=== PATIENT | female | born 1990 | race Caucasian/White ===

== ENCOUNTER 2022-08-01 16:17 | Inpatient (IN) | payer OTHER, SELFPAY ==
[2022-08-01] VITALS (12 sets, daily range): BP systolic 101–142; BP diastolic 64–110; PULSE 68–93; TEMP 36.2–36.4; BMI 35.6
[2022-08-01 17:47] LABS: Basophils Percent Auto 0.3 % (0.2-1.2); Eosinophils Absolute Auto 0.1 K/mm3 (0-0.3); Eosinophils Percent Auto 0.5 % (0-4.4); Hematocrit 32.7 % (37.0-47.0); Hemoglobin 10.5 g/dL (12.0-15.0); Immature Granulocyte Absolute 0.03 K/mm3 (0.00-0.031); Immature Granulocyte Percent A 0.3 % (0-0.5); Lymphocytes Absolute Auto 1.85 K/mm3 (0.9-3.2); Lymphocytes Percent Auto 18.4 % (18.3-44.2); Mean Corpuscular HGB Conc 32.1 g/dl (32-36); Mean Corpuscular Hemoglobin 28.5 pg (26-34); Mean Corpuscular Volume 88.6 fl (80-100); Mean Platelet Volume 10.3 fl (7.4-10.4); Monocytes Absolute Auto 0.7 K/mm3 (0.1-0.6); Monocytes Percent Auto 6.7 % (2.6-8.5); Neutrophils Absolute Auto 7.4 K/mm3 (1.3-6.7); Neutrophils Percent Auto 73.8 % (45.5-73.1); Platelet Count Result 363 k/mm3 (150-375); Red Blood Count 3.69 M/mm3 (4.2-5.4); Red Cell Distribution Width 13.5 % (11.5-14.5)
--- NOTE | 2022-08-01 17:47 | LDADM ---
This patient, Lizzie Recinos, was admitted to Labor/Delivery/Recovery 105 on 08/01/22 at 16:17. Plans for labor, pain management and were discussed with patient. Patient/family oriented to hospital policies and general routines including ID bracelet, bed and alarms, visiting hours, pain management, procedures, bathroom and other care routines, personal items, smoking policy, room service/diet and guest tray routines, security routines, and visiting hours. Patient/Family are encouraged to report perceived risks to care and to ask questions if they do not understand what they are told or what they should do. See OBIX for further documentation.
[2022-08-01] MEDS: miSOPROStol 25 MCG TABLET VAGINAL (18:03)
--- NOTE | 2022-08-01 18:54 | P.HP_ITS ---
H&P: HPI History of Present Illness Date/Time: 08/01/22 18:54 Chief Complaint: induction of labor Narrative: Lizzie is a 32yo G1 at 39.2 for elective IOL. GBS pos. uncomplicated. Review of Systems Review of Systems: All systems reviewed & are unremarkable except as noted in HPI and below [facility] Family History Family History (Updated 07/08/22 @ 12:40 by Raymundo Almanzar RN) Father Chronic obstructive pulmonary disease High cholesterol Hypothyroidism Emphysema lung Grandparent Diabetes mellitus Dementia Hypertension High cholesterol Heart disease Social History Social History Smoking status: Former smoker Tobacco type: cigarettes Substance use: never Spiritual care concerns: No Meds Home Medications and Allergies Home Medications Medication Instructions Recorded Confirmed Type pantoprazole 40 mg tablet,delayed 40 mg PO QAM 07/08/22 08/01/22 History release prenat.vits,patrick,[id number] 1 tablet PO DAILY 07/08/22 08/01/22 History Allergies Allergy/AdvReac Type Severity Reaction Status Date / Time No Known Allergies Allergy Verified 08/01/22 17:43 Vital Signs Vital Signs - 24 hr 08/01/22 17:46 08/01/22 18:11 08/01/22 18:30 Pulse Rate 77 77 Blood Pressure 123/82 119/76 Oxygen Delivery Room Air 08/01/22 18:03 Pulse Rate Blood Pressure Oxygen Delivery Room Air Exam Const: General: no acute distress Resp: Effort & Inspection: normal respiratory effort Auscultation: clear to auscultation bilaterally Cardio: Rate: regular rate Rhythm: regular rhythm GI: GI Palp: Yes Soft to palpation Extrem: General: normal to inspection H&P: Results Labs Labs: Short CBC 08/01/22 Range/Units 17:38 WBC 10.0 (4.5-10.0) K/mm3 Hgb 10.5 L (12.0-15.0) g/dL Hct 32.7 L (37.0-47.0) % Plt Count 363 (150-375) k/mm3 Assessment and Plan Assessment and plan (1) Term : Code(s): Z34.90 - Encounter for supervision of normal , unspecified, unspecified trimester Status: Acute Plan FHT category 1 GBS pos cytotec x1 then pitocin
--- NOTE | 2022-08-01 20:57 | WPDANESEPP ---
Anes - Eval Pre Procedure Procedure: labor epidural Date/Time: 08/01/22 20:57 Pre Op Diagnosis: iol Patient Data Age: 32 Gender: F Height: 1.68 m Weight: 100 kg Last Vital Signs Temp 36.2 C L 08/01/22 20:00 Pulse 79 08/01/22 20:32 BP 142/72 H 08/01/22 20:32 O2 Del Method Room Air 08/01/22 18:03 Allergies Allergy/AdvReac Type Severity Reaction Status Date / Time No Known Allergies Allergy Verified 08/01/22 17:43 Home Medications Medication Instructions Recorded Confirmed Type pantoprazole 40 mg tablet,delayed 40 mg PO QAM 07/08/22 08/01/22 History release prenat.vits,patrick,[id number] 1 tablet PO DAILY 07/08/22 08/01/22 History Laboratory Tests 08/01/22 08/01/22 08/01/22 17:38 17:38 17:38 WBC 10.0 K/mm3 K/mm3 (4.5-10.0) RBC 3.69 M/mm3 L M/mm3 (4.2-5.4) Hgb 10.5 g/dL L g/dL (12.0-15.0) Hct 32.7 % L % (37.0-47.0) MCV 88.6 fl fl (80-100) MCH 28.5 pg pg (26-34) MCHC 32.1 g/dl g/dl (32-36) RDW 13.5 % % (11.5-14.5) Plt Count 363 k/mm3 k/mm3 (150-375) MPV 10.3 fl fl (7.4-10.4) Immature Gran % (Auto) 0.3 % % (0-0.5) Neut % (Auto) 73.8 % H % (45.5-73.1) Lymph % (Auto) 18.4 % % (18.3-44.2) [place] % (Auto) 6.7 % % (2.6-8.5) Eos % (Auto) 0.5 % % (0-4.4) Baso % (Auto) 0.3 % % (0.2-1.2) Lymph # (Auto) 1.85 K/mm3 K/mm3 (0.9-3.2) [place] # (Auto) 0.7 K/mm3 H K/mm3 (0.1-0.6) Eos # (Auto) 0.1 K/mm3 K/mm3 (0-0.3) Baso # (Auto) 0.0 K/mm3 K/mm3 (0.0-0.1) Abs Immat Gran (auto) 0.03 K/mm3 K/mm3 (0.00-0.031) Absolute Neuts (auto) 7.4 K/mm3 H K/mm3 (1.3-6.7) Absolute Nucleated RBC 0.0 K/mm3 K/mm3 (0.0-0.012) Nucleated RBC % 0.0 % % (0.0-0.2) RPR Pending Blood Type O Positive Antibody Screen Negative Patient hx anesthesia problems: none Family hx anesthesia problems: none Results Review: All pre-operative results and documents have been reviewed as part of the pre-operative evaluation. [facility] Past Medical History Medical History (Updated 08/01/22 @ 20:58 by Tigist Green CRNA) Arthritis GERD (gastroesophageal reflux disease) Obese Family History Family History Father Chronic obstructive pulmonary disease High cholesterol Hypothyroidism Emphysema lung Grandparent Diabetes mellitus Dementia Hypertension High cholesterol Heart disease Social History Social History Smoking status: Former smoker Tobacco type: cigarettes Substance use: never Spiritual care concerns: No Exam Day of Procedure 08/01/22 20:57 Patient weight: obese Heart: regular rate and rhythm Lungs: normal air movement Airway: Mallampati scale class II Neurological: alert and oriented
[2022-08-01] MEDS: LACTATED RINGERS 1,000 ML 125 ML IV CONT (22:35)
[2022-08-01] MEDS: AMPICILLIN 2 GM/NS 100 ML 2 GM/100 ML BAG IVPB (22:35)
[2022-08-01] MEDS: OXYTOCIN 30 UNITS/NS 500 ML 30 UNITS/500 ML BAG IV CONT (22:35)
[2022-08-02] VITALS (170 sets, daily range): BP systolic 96–144; BP diastolic 51–111; PULSE 63–217; RESP 16; TEMP 36.3–36.9; O2SAT 83–100
[2022-08-02] MEDS: fentaNYL CITRATE INJ (*CRX) 100 MCG/2 ML VIAL 50 MCG IV PUSH (00:11)
--- NOTE | 2022-08-02 00:44 | PM.OBPNLAB ---
Pain Control Date/time seen: 08/02/22 00:44 Pain control: narcotic analgesia Comments: planning epidural. Pelvic Exam Dilation (cm): 4 Effacement (%): 80 station: -2 Amniotic membrane status: Ruptured Comments: clear Status status: Category ll Comments: moderate variability, occasional accels, some variables Assessment and Plan Assessment: induction ongoing Plan: continuous present management
[2022-08-02] MEDS: LACTATED RINGERS 1,000 ML 125 ML IV CONT ×2 (00:54→08:12)
[2022-08-02] MEDS: SODIUM CHLORIDE 0.9% IV 300 ML 600 ML I-UTERINE (02:20)
[2022-08-02] MEDS: AMPICILLIN 1 GM/NS 50 ML 1 GM/50 ML BAG IVPB ×2 (02:20→06:51)
[2022-08-02] MEDS: TERBUTALINE SULFATE 1 MG/ML VIAL 0.25 MG SUB-Q (02:28)
[2022-08-02 05:31] LABS: Rapid Plasma Reagin Non-Reactive (NonReactive)
--- NOTE | 2022-08-02 10:18 | P.PCNOB_ITS ---
OB - Delivery Note Procedure Delivery date: 08/02/22 Procedure: Events: Elective Induction of Labor Induction method: AROM, Per Misoprostol Protocol and Per Pitocin Protocol Delivery monitor: External FHT and Internal Uterine Route of delivery: Laceration Description: Perineal - 2nd Degree Delivery repair: vicryl Quantitative Blood Loss (ml): 360 Anesthesia type: Epidural Disposition: Floor Narrative: With adequate expulsive efforts by the mother, the baby's head was delivered OA. The baby's anterior shoulder was delivered under the pubic symphysis without difficulty. The posterior shoulder and the rest of the baby delivered without difficulty. The was placed on the mothers chest and suctioned and stimulated. The cord was clamped and cut after 30 seconds. Mother and baby both stable. Marlette Baby Date of : 08/02/22 Time of : 09:55 Weeks of gestation at delivery: 39 gender: Female Weight (pounds): 7 Weight (ounces): 15 presentation: vertex Placenta delivery description: Spontaneous Cord Vessel Description: 3 Vessels, Nuchal Cord and Delayed Cord Clamping score one minute: 8 score five minutes: 9
[2022-08-02] MEDS: OXYTOCIN 30 UNITS/NS 500 ML 30 UNITS/500 ML BAG 125 UNITS IV CONT (10:24)
[2022-08-02] MEDS: IBUPROFEN 600 MG TABLET PO ×2 (13:05→19:30)
--- NOTE | 2022-08-02 13:13 | OBPPTRN ---
Patient transferred to post room #291 via wheelchair. Support person present. Oriented to unit, room, information board, rooming in, admission packet and security measures. Patient verbalizes understanding. with patient.
[2022-08-02] MEDS: DOCUSATE SODIUM 100 MG CAPSULE PO (19:30)
[2022-08-03] VITALS: BP 120/82; PULSE 75; RESP 16; TEMP 36.1
[2022-08-03] MEDS: IBUPROFEN 600 MG TABLET PO ×3 (01:12→16:11)
[2022-08-03 03:20] VITALS: BP 120/82; PULSE 75; RESP 16; TEMP 36.7
[2022-08-03 04:59] LABS: Hematocrit 29.7 % (37.0-47.0); Hemoglobin 9.6 g/dL (12.0-15.0)
--- NOTE | 2022-08-03 08:16 | PM.OBPNVD ---
OB - PN: Subj Subjective Date/time seen: 08/03/22 08:16 Patient comments: no complaints, pain well controlled, incisional pain, tolerating diet and flatus present OB - PN: Obj Data Labs CBC & Chem 7: 08/03/22 03:24 Labs: Laboratory Results - last 24 hr 08/03/22 03:24 Hgb 9.6 L Hct 29.7 L OB - PN A/P Plan day: 1 Plan: routine care Comments: No problems, routine care Time Spent With Patient Time: Total time spent is greater than 50% in coordination of care (as documented) at patient's floor/unit and/or counseling patient: Exam Const: General: comfortable, no acute distress and alert Resp: Effort & Inspection: normal respiratory effort Auscultation: no crackles, no rales and no rhonchi Cardio: Rate: regular rate Heart sounds: no click, no murmurs and no rubs GI: Inspection: non-distended GI Palp: No Tenderness to palpation present (GI) Auscultation: normal bowel sounds Other: Incision - CDI Extrem: General: normal to inspection, no pedal edema and no calf tenderness
[2022-08-03 10:00] VITALS: BP 132/79; PULSE 72; RESP 18; TEMP 36.4; O2SAT 98
[2022-08-03] MEDS: MULTIVIT/MIN/PREN/FOL AC/IRON TABLET 1 TAB PO (10:08)
[2022-08-03] MEDS: POLYSACCHARIDE IRON COMPLEX 150 MG CAPSULE PO ×2 (10:08→16:11)
[2022-08-03] MEDS: DOCUSATE SODIUM 100 MG CAPSULE PO ×2 (10:08→16:11)
--- NOTE | 2022-08-03 12:40 | PC.NURSE ---
[id number] Introductions were made, then consulted with patient to assess needs related to . Mother led the conversation with her?plans to feed?her infant and the?experience so far. Resources provided for inpatient and outpatient services using a resource guide and mom/baby guide. Mother voiced understanding of information and requests assistance. Mother works well with her with encouragement and education. Encouraged understanding of the benefits of skin to skin (unwrapping and placing vertically on her chest), responsive feeding and how to watch for early feeding signs, frequency of feeding on demand about every 8-12 times in 24 hours (every 2-3 hours), milk production, duration of feeding, hand expression with clean hands, signs of adequate intake/output using the pie demonstration and how to record on the feeding sheet. Reviewed positioning and ear, shoulder, hip alignment, supporting the breast, asymmetrical latch (off-center), leading with the chin with a big open side gape and keeping tucked in close to mothers body. Reverse pressuring was done to the left breast and several attempts were made to obtain an latch optimally to the left breast with football position. Infant breastfed for 10 minutes with no pain to mother. was placed skin to skin upright, when feeding cues were demonstrated infant was brought to the right breast using football positioning. Education given to mother of how to visualize suck/swallow ratios and listen for drinking at the breast. Infant was able to maintain latch without discomfort to mother. Nipple care reviewed with optimal latch and good positioning. Resources used to facilitate learning were used with the visual handouts/ tool/mom and baby guide. Mother voiced understanding of responsive feedings, stimulating with skin to skin, hand expressed colostrum, touch, talking to to encourage if it has been 2 -3 hours since the start of the last , to call if does not latch or there is discomfort with . 1151 - Encouraged mother to stimulate her with skin to skin. There's a visitor holding the infant at this time. [id number] - Mother called RN to the room for assistance with a latch. Mother is working well attempting to latch her infant to the breast on her own when RN entered the room. Reviewed early teaching regarding positioning, big, open, wide, gape for latching, bringing infant in close to obtain a big mouthful. Infant effectively breastfeeds. At times the infant repositions to a shallow latch. Mother encouraged to support the optimal latch keeping her infant close. Signs of a good latch are reviewed and mother states there is not pain with the latch and she voiced understanding to call for assistance getting her to the right breast for the next feeding.
--- NOTE | 2022-08-03 12:48 | WPDANLDPN2 ---
Anes-Prog Note L&D Date/Time: 08/03/22 12:48 Comfortable throughout: labor and delivery Neuraxial method: epidural Epidural/Spinal procedure site: clean & non-tender Neuro status: Neuro function grossly intact. Cardiovascular status: normal Respiratory status: normal Airway patency: baseline Mental status: baseline Post-Op hydration status: normal Vital Signs: Last Vital Signs Temp 36.4 C L 08/03/22 10:00 Pulse 72 08/03/22 10:00 Resp 18 08/03/22 10:00 BP 132/79 08/03/22 10:00 Pulse Ox 98 08/03/22 10:00 O2 Del Method Room Air 08/02/22 13:13 Pain score (VAS): 2 Post-procedural complaints: none Patient feedback: Patient satisfied with anesthetic care.
[2022-08-03 19:30] VITALS: BP 112/59; PULSE 70; RESP 16; TEMP 36.7
[2022-08-04] MEDS: IBUPROFEN 600 MG TABLET PO (05:42)
[2022-08-04 07:36] VITALS: PULSE 70; RESP 16; O2SAT 98
--- NOTE | 2022-08-04 08:07 | P.PNOB_ITS ---
OB - PN: Subj Subjective Date/time seen: 08/04/22 08:07 Patient comments: no complaints and pain well controlled baby status: doing well [place] feeding status: exclusively breast feeding OB - PN: Obj Data Labs CBC & Chem 7: 08/03/22 03:24 OB - PN A/P Plan day: 2 Plan: routine care and discharge home Time Spent With Patient Time: Total time spent is greater than 50% in coordination of care (as documented) at patient's floor/unit and/or counseling patient: Time with patient: less than 15 minutes Exam Narrative: NAD abdomen soft, nontender, fundus firm below the umbilicus Extremities nontender, 1+ edema
--- NOTE | 2022-08-04 08:09 | P.DS_ITS ---
DS: Admitting Diagnosis Discharge Date 08/04/22 Admitting Diagnosis term IUP DS: Discharge Diagnosis Discharge Diagnosis (1) , delivered: Code(s): O80 - Encounter for full-term uncomplicated delivery Status: Acute OB - DS: Summary Hospital Course Hospital Course: Richar was admitted for elective IOL at 39w and had an uncomplicated vaginal delivery and course. She was discharged home on day 2. OB Procedures : Ultrasound OB Procedures Intrapartum: Spontaneous Vag Delivery OB Procedures: : None Peripartum Data Infant Delivery Method: Natural Vaginal complications: none Status at Discharge Functional status at discharge: independent ambulation Time Spent with Patient Time attestation: Total time spent providing and/or coordinating discharge services: Exam Narrative: NAD abdomen soft, appropriately tender Ext non tender, 1+ edema Discharge Plan Discharge Attending physician on discharge: Preeti Ortiz Discharging Clinician: Preeti Ortiz Anticipated Discharge Date/Time: 08/04/22 08:08 Patient Disposition: Home, Self-Care Activity: pelvic rest Diet: regular Patient Instructions: Antibiotic Form Stand Alone Forms: General Discharge Information Follow-up/Referrals: Preeti Ortiz MD [Physician] - 4 Weeks Discharge Medications: Continued pantoprazole 40 mg Tablet,Delayed Release (Dr/Ec) 40 mg PO QAM #2 Tablet 1 tablet PO DAILY Date of admission: 08/01/22 16:17 Primary Care Provider: PHYSICIAN,MANAGER SUPPORT SERVICES Admitting Provider: Preeti Ortiz Attending physician on admission: Preeti Ortiz Condition: Stable
[2022-08-04 09:00] VITALS: BP 122/72; PULSE 64; RESP 18; TEMP 36.4; O2SAT 99
[2022-08-04] MEDS: DOCUSATE SODIUM 100 MG CAPSULE PO (10:56)
[2022-08-04] MEDS: MULTIVIT/MIN/PREN/FOL AC/IRON TABLET 1 TAB PO (10:56)
[2022-08-04] MEDS: POLYSACCHARIDE IRON COMPLEX 150 MG CAPSULE PO (10:56)
--- NOTE | 2022-08-04 11:59 | PC.NURSE ---
[id number] Mother led the conversation with her experience and plan to feed her so far and her ability to independently latch optimally without discomfort to the left breast with a plan to continue latching infant to the right breast. Mother states she will pump the right breast when she gets home if her doesn't breastfeed on that side very well. Mother states her nipple is sore with first latching, then subsides. Reminded parents to use good handwashing technique to prevent infection. Mother is feeding appropriately for growth of infant and understands stimulating to eat if needed. Infant has had appropriate feedings in the last 24 hours meets the outcomes for weight, output and jaundice at this time. Mother states she is confident to continue effectively her at home or when to call for assistance and denies any additional assistance or education at this time. Reinforced understanding of milk production, transition of milk, signs of adequate intake, prevention/relief of engorgement, responsive after visualizing feeding cues, the different methods of stimulating to breastfeed 2-3 hours after the start of the last feeding, community resources, medication information reviewed per [facility] and when to call a provider using the resource of the mom and baby guide/[facility] website. Mother voiced understanding of the education shared.
[2022-08-07 11:16] VITALS: BP 120/79; PULSE 68; RESP 20; TEMP 36.9; O2SAT 98
== END 2022-08-04 12:21 | disposition home or self-care (01) | DRG 807 ==
LOC: ANHLDR 08-02 11:45 → ANHOB2 08-02 13:33
PROVIDERS: Admitting Provider Obstetrics & Gynecology; Visit Provider Obstetrics & Gynecology
DX: O99.824 Streptococcus B carrier state complicating childbirth (principal); Z37.0 Single live birth; O70.1 Second degree perineal laceration during delivery; O76 Abnormality in fetal heart rate and rhythm complicating labor and delivery; Z3A.39 39 weeks gestation of pregnancy
CPT/HCPCS: 36415; 85014; 85018; 85025; 86592; 86850; 86900; 86901; A9270; J0290; J2590; J2795; J3010; J3105; J7030; J7120

== ENCOUNTER 2023-01-24 11:59 | Emergency (ER) | payer OTHER, SELFPAY ==
[2023-01-24 12:04] VITALS: BP 121/63; PULSE 64; RESP 16; TEMP 36.7; O2SAT 100
--- NOTE | 2023-01-24 13:01 | ED.URI ---
HPI - URI/Sore Throat General Chief Complaint: Upper Respiratory Infection Stated Complaint: Sore Throat Time Seen by Provider: 01/24/23 13:01 Source: patient, RN notes reviewed and old records reviewed Mode of arrival: ambulatory Limitations: no limitations History of Present Illness HPI Narrative: 32 year old female who presents to [facility] care with 5 day history of complaints of sore throat which she refers to being on fire, post nasal drainage, her left ear popping.Reports history of chronic sinus problems with past sinus surgery.Patient reports that she has taken Tylenol severe sinus medication for her symptoms and using Flonase also.Patient reports no know ill contacts. MD elicited complaint: sore throat, rhinorrhea, nasal congestion and other ( pain left ear) Pertinent past history: sinusitis Onset (ago): day(s) (5) Pain scale (0-10): 6 Treatments prior to arrival: other (Tylenol severe sinus medication) Related Data Home Medications Medication Instructions Recorded Confirmed drospirenone 3 mg-ethinyl 1 tablet PO DAILY 01/24/23 01/24/23 estradiol 0.02 mg tablet Allergies Allergy/AdvReac Type Severity Reaction Status Date / Time No Known Allergies Allergy Verified 01/24/23 12:27 Review of Systems Review of Systems: CONSTITUTIONAL: Denies malaise, chills, sweats, or fever. EYES: Denies visual changes, redness, or discharge. ENT: Reports rhinorrhea, congestion, sinus pain, left ear otalgia,sore throat CARDIOVASCULAR: Denies chest pain, palpitations, or edema. RESPIRATORY: Reports cough.? Denies dyspnea. GASTROINTESTINAL: Denies abdominal pain, nausea, vomiting, diarrhea SKIN: Denies rash or itching. MUSCULOSKELETAL: Denies myalgia. NEUROLOGIC: Denies headache. All systems reviewed & are unremarkable except as noted in HPI and below PMFSH Past Medical History Medical History (Updated 01/26/23 @ 10:27 by Lien Valentine NP) Arthritis Chronic sinusitis GERD (gastroesophageal reflux disease) Obese Surgical History Surgical History H/O sinus surgery Family History Family History Father Chronic obstructive pulmonary disease High cholesterol Hypothyroidism Emphysema lung Grandparent Diabetes mellitus Dementia Hypertension High cholesterol Heart disease Social History Social History Smoking status: Former smoker Tobacco type: cigarettes Substance use: never Spiritual care concerns: No Comments At time of signature, agree with nursing past medical, surgical, social and family history. There is no relevant family history pertinent to the presenting complaint Exam Narrative: GENERAL: Well-appearing, well-nourished, and in no acute distress. HEAD: Normocephalic EYES: PERRLA, conjunctivae clear ENT: Nares clear, turbinates edematous and erythematous, clear to green tinged discharge.sinus pressure, Mucous membranes moist. TM pearly acosta with dull light reflex bilaterally; no tragal tenderness. Oropharynx erythematous without lesions. Tonsils not enlarged and without exudate, no drooling, no hoarseness, no trismus, uvula midline.post nasal discharge NECK: Supple. No lymphadenopathy CHEST: Clear to auscultation, breath sounds equal. No wheezing, rhonchi, rales, or stridor. No respiratory distress, speaks in full sentences.SAO2 100% on room air HEART: Regular rate and rhythm. No murmur heard. SKIN: Warm, dry, no rash. NEURO: Alert and oriented x3. PSYCH: Normal mood and affect Course Course Emergency Course: Patient is aware of diagnosis, understands and agrees to treatment plan.? Anticipatory guidance given.? Patient agrees to follow-up as directed and is aware of reasons to seek care at the emergency department. Portions of this record may have been created with voice recognition s
== END 2023-01-24 13:15 | disposition home or self-care (01) ==
PROVIDERS: Emergency Provider Registered Nurse; PCP Family Medicine
DX: J32.9 Chronic sinusitis, unspecified (principal); B96.89 Other specified bacterial agents as the cause of diseases classified elsewhere; Z87.891 Personal history of nicotine dependence
CPT/HCPCS: 87081; 87880; 99213; G0463